=== PATIENT | female | born 1950 | race Asian ===

== ENCOUNTER → 2016-11-30 | Outpatient (CLI) | payer OTHER ==
[2016-11-30 08:19] LABS: BASOPHIL % 0.5 % (0-2); PLATELET COUNT 258 x10^3mcL (130-400); RED CELL DISTRIBUTION WIDTH 13.2 % (11.5-14.5)
[2016-11-30 10:50] LABS: ALBUMIN 3.6 g/dL (3.4-5.0); ALKALINE PHOSPHATASE 53 U/L (46-116); ALT/SGPT 25 U/L (14-59); AST/SGOT 18 U/L (15-37); CALCIUM 8.8 mg/dL (8.5-10.1); CHLORIDE SERUM 106 mmol/L (98-107); CREATININE SERUM 0.9 mg/dL (0.6-1.0); GFR1 > 60 mL/min; GLUCOSE SERUM 114 mg/dL (74-106); SODIUM SERUM 143 mmol/L (136-145); TOTAL PROTEIN, SERUM 7.4 g/dL (6.4-8.2); TRIGLYCERIDES 91 mg/dL (<150)
[2016-11-30 10:51] LABS: CHOLESTEROL 224 mg/dL (<200); CHOLESTEROL/HDL RATIO 3.5; HDL CHOLESTEROL 64 mg/dL (40-60)
[2016-12-01 08:01] LABS: VITAMIN D 25-HYDROXY 45.2 ng/mL (30.0-100.0)
== END | disposition home or self-care (01) ==
LOC: LB 07:48
DX: Z00.00 Encounter for general adult medical examination without abnormal findings (principal)

== ENCOUNTER → 2017-03-03 | Outpatient (CLI) | payer OTHER ==
[2017-03-03 08:55] LABS: ALBUMIN 3.4 g/dL (3.4-5.0); ALKALINE PHOSPHATASE 50 U/L (46-116); ALT/SGPT 24 U/L (14-59); AST/SGOT 31 U/L (15-37); BILIRUBIN TOTAL 0.47 mg/dL (0.20-1.00); CALCIUM 8.9 mg/dL (8.5-10.1); CARBON DIOXIDE 28.2 mmol/L (21-32); CHLORIDE SERUM 105 mmol/L (98-107); CHOLESTEROL 166 mg/dL (<200); CREATININE SERUM 0.9 mg/dL (0.6-1.0); GFR1 > 60 mL/min; GLUCOSE SERUM 114 mg/dL (74-106); POTASSIUM SERUM 4.4 mmol/L (3.5-5.1); SODIUM SERUM 141 mmol/L (136-145); TOTAL PROTEIN, SERUM 7.3 g/dL (6.4-8.2); TRIGLYCERIDES 75 mg/dL (<150)
[2017-03-03 08:56] LABS: CHOLESTEROL/HDL RATIO 2.6; HDL CHOLESTEROL 64 mg/dL (40-60)
== END | disposition home or self-care (01) ==
LOC: LB 07:37
DX: R73.09 Other abnormal glucose (principal); E78.5 Hyperlipidemia, unspecified

== ENCOUNTER → 2017-07-07 | Outpatient (CLI) | payer OTHER ==
[2017-07-07 08:14] LABS: ALBUMIN 3.6 g/dL (3.4-5.0); ALKALINE PHOSPHATASE 57 U/L (46-116); ALT/SGPT 26 U/L (14-59); AST/SGOT 18 U/L (15-37); BILIRUBIN TOTAL 0.44 mg/dL (0.20-1.00); CALCIUM 9.1 mg/dL (8.5-10.1); CARBON DIOXIDE 27.8 mmol/L (21-32); CHLORIDE SERUM 106 mmol/L (98-107); CREATININE SERUM 0.9 mg/dL (0.6-1.0); GFR1 > 60 mL/min; GLUCOSE SERUM 118 mg/dL (74-106); POTASSIUM SERUM 3.6 mmol/L (3.5-5.1); SODIUM SERUM 142 mmol/L (136-145)
== END | disposition home or self-care (01) ==
LOC: LB 07:36
DX: R73.03 Prediabetes (principal)

== ENCOUNTER → 2017-10-04 | Outpatient (CLI) | payer OTHER ==
[2017-10-04 08:26] LABS: ALBUMIN 3.7 g/dL (3.4-5.0); ALKALINE PHOSPHATASE 58 U/L (46-116); ALT/SGPT 29 U/L (14-59); AST/SGOT 21 U/L (15-37); BILIRUBIN TOTAL 0.53 mg/dL (0.20-1.00); CALCIUM 9.2 mg/dL (8.5-10.1); CARBON DIOXIDE 29.3 mmol/L (21-32); CHLORIDE SERUM 102 mmol/L (98-107); CHOLESTEROL 240 mg/dL (<200); CREATININE SERUM 0.8 mg/dL (0.6-1.0); GFR1 > 60 mL/min; GLUCOSE SERUM 120 mg/dL (74-106); HDL CHOLESTEROL 60 mg/dL (40-60); POTASSIUM SERUM 4.5 mmol/L (3.5-5.1); SODIUM SERUM 140 mmol/L (136-145); TOTAL PROTEIN, SERUM 8.1 g/dL (6.4-8.2); TRIGLYCERIDES 100 mg/dL (<150)
== END | disposition home or self-care (01) ==
LOC: LB 07:37
DX: R73.09 Other abnormal glucose (principal); E78.5 Hyperlipidemia, unspecified

== ENCOUNTER → 2018-01-11 | Outpatient (CLI) | payer OTHER ==
[2018-01-11 07:58] LABS: ALBUMIN 3.5 g/dL (3.4-5.0); ALKALINE PHOSPHATASE 69 U/L (46-116); ALT/SGPT 24 U/L (14-59); AST/SGOT 18 U/L (15-37); BILIRUBIN TOTAL 0.5 mg/dL (0.20-1.00); CALCIUM 8.7 mg/dL (8.5-10.1); CARBON DIOXIDE 30.2 mmol/L (21-32); CHLORIDE SERUM 105 mmol/L (98-107); CREATININE SERUM 0.9 mg/dL (0.6-1.0); GFR1 > 60 mL/min; GLUCOSE SERUM 120 mg/dL (74-106); HDL CHOLESTEROL 52 mg/dL (40-60); POTASSIUM SERUM 4.1 mmol/L (3.5-5.1); SODIUM SERUM 142 mmol/L (136-145); TOTAL PROTEIN, SERUM 7.3 g/dL (6.4-8.2); TRIGLYCERIDES 118 mg/dL (<150)
[2018-01-11 07:59] LABS: CHOLESTEROL 219 mg/dL (<200); CHOLESTEROL/HDL RATIO 4.2
== END | disposition home or self-care (01) ==
LOC: LB 07:13
DX: E78.5 Hyperlipidemia, unspecified (principal)

== ENCOUNTER → 2018-05-02 | Outpatient (CLI) | payer OTHER ==
[2018-05-02 08:34] LABS: ALBUMIN 3.6 g/dL (3.4-5.0); BILIRUBIN TOTAL 0.61 mg/dL (0.20-1.00); CARBON DIOXIDE 27.7 mmol/L (21-32); CHOLESTEROL/HDL RATIO 3.9; POTASSIUM SERUM 3.8 mmol/L (3.5-5.1); TOTAL PROTEIN, SERUM 7.9 g/dL (6.4-8.2)
== END | disposition home or self-care (01) ==
LOC: LB 08:01
DX: E78.5 Hyperlipidemia, unspecified (principal); R73.03 Prediabetes

== ENCOUNTER → 2018-08-11 | Outpatient (CLI) | payer OTHER ==
[2018-08-11 08:27] LABS: ALBUMIN 3.7 g/dL (3.4-5.0); ALKALINE PHOSPHATASE 59 U/L (46-116); ALT/SGPT 68 U/L (14-59); AST/SGOT 31 U/L (15-37); BILIRUBIN TOTAL 0.4 mg/dL (0.20-1.00); CALCIUM 9.1 mg/dL (8.5-10.1); CARBON DIOXIDE 27.1 mmol/L (21-32); CHLORIDE SERUM 105 mmol/L (98-107); CHOLESTEROL 186 mg/dL (<200); CHOLESTEROL/HDL RATIO 3.6; CREATININE SERUM 0.9 mg/dL (0.6-1.0); GFR1 > 60 mL/min; GLUCOSE SERUM 113 mg/dL (74-106); HDL CHOLESTEROL 51 mg/dL (40-60); POTASSIUM SERUM 4.1 mmol/L (3.5-5.1); SODIUM SERUM 144 mmol/L (136-145); TOTAL PROTEIN, SERUM 7.1 g/dL (6.4-8.2); TRIGLYCERIDES 102 mg/dL (<150)
== END | disposition home or self-care (01) ==
LOC: LB 07:00
DX: E78.5 Hyperlipidemia, unspecified (principal)

== ENCOUNTER → 2018-12-02 | Outpatient (CLI) | payer OTHER ==
[2018-12-02 07:38] LABS: BASOPHIL % 0.4 % (0-2); PLATELET COUNT 281 x10^3mcL (130-400); RED CELL DISTRIBUTION WIDTH 13.2 % (11.5-14.5)
[2018-12-02 07:59] LABS: ALBUMIN 3.7 g/dL (3.4-5.0); ALKALINE PHOSPHATASE 66 U/L (46-116); ALT/SGPT 22 U/L (14-59); AST/SGOT 16 U/L (15-37); BILIRUBIN TOTAL 0.6 mg/dL (0.20-1.00); CALCIUM 9.1 mg/dL (8.5-10.1); CARBON DIOXIDE 27.2 mmol/L (21-32); CHLORIDE SERUM 104 mmol/L (98-107); CREATININE SERUM 0.9 mg/dL (0.6-1.0); GFR1 > 60 mL/min; GLUCOSE SERUM 122 mg/dL (74-106); POTASSIUM SERUM 4.5 mmol/L (3.5-5.1); SODIUM SERUM 141 mmol/L (136-145); TOTAL PROTEIN, SERUM 7.8 g/dL (6.4-8.2); TRIGLYCERIDES 78 mg/dL (<150)
[2018-12-02 08:16] LABS: CHOLESTEROL 216 mg/dL (<200); CHOLESTEROL/HDL RATIO 3.4; HDL CHOLESTEROL 64 mg/dL (40-60)
== END | disposition home or self-care (01) ==
LOC: LB 07:11
DX: R74.0 Nonspecific elevation of levels of transaminase and lactic acid dehydrogenase [LDH] (principal); R73.03 Prediabetes

== ENCOUNTER → 2019-03-03 | Outpatient (CLI) | payer OTHER ==
[2019-03-03 07:58] LABS: ALBUMIN 3.6 g/dL (3.4-5.0); ALKALINE PHOSPHATASE 59 U/L (46-116); ALT/SGPT 26 U/L (14-59); AST/SGOT 18 U/L (15-37); BILIRUBIN TOTAL 0.5 mg/dL (0.20-1.00); CALCIUM 8.8 mg/dL (8.5-10.1); CARBON DIOXIDE 24.9 mmol/L (21-32); CHLORIDE SERUM 106 mmol/L (98-107); CHOLESTEROL 170 mg/dL (<200); CHOLESTEROL/HDL RATIO 2.9; CREATININE SERUM 0.8 mg/dL (0.6-1.0); GFR1 > 60 mL/min; GLUCOSE SERUM 121 mg/dL (74-106); HDL CHOLESTEROL 59 mg/dL (40-60); POTASSIUM SERUM 4.1 mmol/L (3.5-5.1); SODIUM SERUM 142 mmol/L (136-145); TOTAL PROTEIN, SERUM 7.4 g/dL (6.4-8.2); TRIGLYCERIDES 76 mg/dL (<150)
== END | disposition home or self-care (01) ==
LOC: LB 07:10
DX: E78.5 Hyperlipidemia, unspecified (principal); R73.03 Prediabetes; E55.9 Vitamin D deficiency, unspecified

== ENCOUNTER → 2019-06-21 | Outpatient (CLI) | payer OTHER ==
[2019-06-21 07:45] LABS: CARBON DIOXIDE 30.4 mmol/L (21-32); CHLORIDE SERUM 105 mmol/L (98-107); CHOLESTEROL 193 mg/dL (<200); CREATININE SERUM 0.8 mg/dL (0.6-1.0); GFR1 > 60 mL/min; GLUCOSE SERUM 108 mg/dL (74-106); POTASSIUM SERUM 4.5 mmol/L (3.5-5.1); SODIUM SERUM 143 mmol/L (136-145); TRIGLYCERIDES 73 mg/dL (<150)
[2019-06-21 07:50] LABS: CHOLESTEROL/HDL RATIO 3.2; HDL CHOLESTEROL 61 mg/dL (40-60)
== END | disposition home or self-care (01) ==
LOC: LB 07:02
DX: R73.03 Prediabetes (principal)

== ENCOUNTER → 2019-09-29 | Outpatient (CLI) | payer OTHER ==
[2019-09-29 07:56] LABS: BASOPHIL % 0.2 % (0-2); RED CELL DISTRIBUTION WIDTH 13.7 % (11.5-14.5)
[2019-09-29 08:18] LABS: ALBUMIN 3.8 g/dL (3.4-5.0); ALKALINE PHOSPHATASE 68 U/L (46-116); ALT/SGPT 25 U/L (14-59); AST/SGOT 19 U/L (15-37); BILIRUBIN TOTAL 0.5 mg/dL (0.20-1.00); CALCIUM 8.7 mg/dL (8.5-10.1); CARBON DIOXIDE 28.5 mmol/L (21-32); CHLORIDE SERUM 105 mmol/L (98-107); CREATININE SERUM 0.8 mg/dL (0.6-1.0); GFR1 > 60 mL/min; GLUCOSE SERUM 113 mg/dL (74-106); SODIUM SERUM 142 mmol/L (136-145); TOTAL PROTEIN, SERUM 8.2 g/dL (6.4-8.2); TRIGLYCERIDES 89 mg/dL (<150)
[2019-09-29 08:20] LABS: CHOLESTEROL 253 mg/dL (<200); CHOLESTEROL/HDL RATIO 4.1; HDL CHOLESTEROL 61 mg/dL (40-60)
[2019-09-29 10:39] LABS: PLATELET COUNT 243 x10^3mcL (130-400)
== END | disposition home or self-care (01) ==
LOC: LB 07:25
DX: E11.9 Type 2 diabetes mellitus without complications (principal); E78.5 Hyperlipidemia, unspecified

== ENCOUNTER → 2020-01-10 | Outpatient (CLI) | payer OTHER ==
[2020-01-10 07:58] LABS: ALBUMIN 3.5 g/dL (3.4-5.0); ALKALINE PHOSPHATASE 43 U/L (46-116); ALT/SGPT 20 U/L (14-59); AST/SGOT 15 U/L (15-37); BILIRUBIN TOTAL 0.5 mg/dL (0.20-1.00); CALCIUM 8.5 mg/dL (8.5-10.1); CARBON DIOXIDE 28.1 mmol/L (21-32); CHLORIDE SERUM 105 mmol/L (98-107); CHOLESTEROL 162 mg/dL (<200); CHOLESTEROL/HDL RATIO 2.8; CREATININE SERUM 0.9 mg/dL (0.6-1.0); GFR1 > 60 mL/min; GLUCOSE SERUM 112 mg/dL (74-106); HDL CHOLESTEROL 58 mg/dL (40-60); POTASSIUM SERUM 3.9 mmol/L (3.5-5.1); SODIUM SERUM 142 mmol/L (136-145); TOTAL PROTEIN, SERUM 7.1 g/dL (6.4-8.2); TRIGLYCERIDES 75 mg/dL (<150)
== END | disposition home or self-care (01) ==
LOC: LB 06:59
DX: E78.5 Hyperlipidemia, unspecified (principal); R73.03 Prediabetes

== ENCOUNTER → 2020-04-17 | Outpatient (CLI) | payer OTHER ==
[2020-04-17 08:00] LABS: ALBUMIN 3.5 g/dL (3.4-5.0); ALKALINE PHOSPHATASE 45 U/L (46-116); ALT/SGPT 16 U/L (14-59); AST/SGOT 16 U/L (15-37); BILIRUBIN TOTAL 0.5 mg/dL (0.20-1.00); CALCIUM 8.7 mg/dL (8.5-10.1); CARBON DIOXIDE 28.8 mmol/L (21-32); CHLORIDE SERUM 105 mmol/L (98-107); CHOLESTEROL 182 mg/dL (<200); CHOLESTEROL/HDL RATIO 3.3; CREATININE SERUM 0.9 mg/dL (0.6-1.0); GFR1 > 60 mL/min; GLUCOSE SERUM 115 mg/dL (74-106); HDL CHOLESTEROL 56 mg/dL (40-60); POTASSIUM SERUM 4.3 mmol/L (3.5-5.1); SODIUM SERUM 139 mmol/L (136-145); TOTAL PROTEIN, SERUM 7.3 g/dL (6.4-8.2); TRIGLYCERIDES 102 mg/dL (<150)
== END | disposition home or self-care (01) ==
LOC: LB 07:12
DX: E78.5 Hyperlipidemia, unspecified (principal); R73.03 Prediabetes

== ENCOUNTER → 2020-09-13 | Outpatient (CLI) | payer OTHER ==
[2020-09-13 07:32] LABS: ALBUMIN 3.7 g/dL (3.4-5.0); ALKALINE PHOSPHATASE 48 U/L (46-116); ALT/SGPT 26 U/L (14-59); AST/SGOT 17 U/L (15-37); BILIRUBIN TOTAL 0.4 mg/dL (0.20-1.00); CALCIUM 8.7 mg/dL (8.5-10.1); CARBON DIOXIDE 30.8 mmol/L (21-32); CHLORIDE SERUM 106 mmol/L (98-107); CHOLESTEROL 177 mg/dL (<200); CREATININE SERUM 0.9 mg/dL (0.6-1.0); GFR1 > 60 mL/min; GLUCOSE SERUM 121 mg/dL (74-106); POTASSIUM SERUM 4.5 mmol/L (3.5-5.1); SODIUM SERUM 144 mmol/L (136-145); TOTAL PROTEIN, SERUM 7.6 g/dL (6.4-8.2); TRIGLYCERIDES 78 mg/dL (<150)
[2020-09-13 08:00] LABS: CHOLESTEROL/HDL RATIO 2.8; HDL CHOLESTEROL 64 mg/dL (40-60)
[2020-09-13 08:36] LABS: BASOPHIL % 1.1 % (0.2-1.3); PLATELET COUNT 258 x10^3mcL (179-408)
== END | disposition home or self-care (01) ==
LOC: LB 06:58
DX: E78.5 Hyperlipidemia, unspecified (principal); R73.09 Other abnormal glucose